=== PATIENT | male | born 1945 | race Caucasian/White ===

== ENCOUNTER → 2019-02-22 | Outpatient (CLI) | payer OTHER ==
[~2019-02-22] MED LIST: BACLOFEN 10MG T10 MG PO; LEVOTHYROXIN0.125 M1 PO; MOBIC15 MG PO; TRAMADOL 50 MG50 MG PO
== END ==
LOC: MRI 07:04
DX: M17.12 Unilateral primary osteoarthritis, left knee (principal); M25.762 Osteophyte, left knee; Z98.890 Other specified postprocedural states